=== PATIENT | male | born 1955 | race Caucasian/White ===

== ENCOUNTER → 2018-09-22 | Outpatient (CLI) | payer OTHER ==
[~2018-09-22] MED LIST: FISH1CAP PO; Glucosamine PO; LISI1TAB3 PO; MULT-717 PO; OMEP10CA4 PO; OMNIPAQUE 350 MG/ML, 100ML BOTTLE ONE; Vitamin E PO; vit
== END | disposition home or self-care (01) ==
LOC: CFH 07:17
PROVIDERS: ATTEND Family Medicine
DX: K76.0 Fatty (change of) liver, not elsewhere classified (principal); K76.89 Other specified diseases of liver; I70.0 Atherosclerosis of aorta; K40.20 Bilateral inguinal hernia, without obstruction or gangrene, not specified as recurrent; I86.1 Scrotal varices; N50.3 Cyst of epididymis
CPT/HCPCS: 74177; 76870; 93975; Q9967